=== PATIENT | male | born 1970 | race Caucasian/White ===

== ENCOUNTER → 2017-03-01 | Outpatient (CLI) | payer MEDICARE, MEDICAID ==
[~2017-03-01] MED LIST: BIMA2.5D5 OP; CALC625T57 PO; CALC625T64 PO; CHLO1LIQ2 PO; CLOT15CR66 TP; DIVA250T83 PO; DIVA500T97 PO; DIVA500T98 PO; DOCU-299 PO; LACO200T2 PO; LORA-629 PO; LORA-941 PO; LORA10CA3 PO; MAGN-40 PO; MULT-1335 PO; OXYGEN INH; PERA10TA; PERA2TAB PO; POLY1DRO10 OP; PRE20 PO; SODCTAB PO; SODI104S3; SYSTANEPT OP; TRIA15CR40; VITAMIN; [UNRECOGNIZED DRUG - CODE] PO; [UNRECOGNIZED DRUG - CODE] TP
== END ==
LOC: LAB 16:51
PROVIDERS: ATTEND Psychiatry & Neurology Neurology
DX: R62.50 Unspecified lack of expected normal physiological development in childhood (principal); F69 Unspecified disorder of adult personality and behavior; G40.109 Localization-related (focal) (partial) symptomatic epilepsy and epileptic syndromes with simple partial seizures, not intractable, without status epilepticus; Z92.89 Personal history of other medical treatment; E03.9 Hypothyroidism, unspecified
CPT/HCPCS: 36415; 80339; 82390; 82525; 82607; 84207; 84439; 84443; 84446; 84481

== ENCOUNTER → 2017-07-16 | Outpatient (CLI) | payer MEDICARE, MEDICAID | LOC: RESP 19:59 | PROVIDERS: ATTEND Psychiatry & Neurology Neurology | DX: G47.33 Obstructive sleep apnea (adult) (pediatric) (principal); G47.36 Sleep related hypoventilation in conditions classified elsewhere; E66.3 Overweight ==

== ENCOUNTER 2017-10-15 10:47 | Emergency (ER) | payer MEDICARE, MEDICAID ==
--- NOTE | 2017-10-15 11:11 | ER Report ---
History and Physical Time Seen By MD: 11:11 Hx. of Stated Complaint: ACCORDING TO CARE PROVIDER, PT HAS NOT HAD A BM SINCE 09/27. PT DOES NOT APPEAR IN ANY DISTRESS, HAS BEEN EATING HPI/ROS CHIEF COMPLAINT: Constipation HISTORY OF PRESENT ILLNESS: 39-year-old male patient presents to emergency room with complaint of constipation. Patient is a patient of the [facility]. They state they have not noted that he has had a bowel movement in 17 days. They did bring him in for evaluation. They state that he spent eating okay, he has not had any nausea, vomiting or diarrhea. They state that they did give him a milk of mag with no improvement. Patient has not had any fevers or chills. They state that he has not seemed more irritable or in obvious discomfort. REVIEW OF SYSTEMS: Respiratory: No cough, no dyspnea. Cardiovascular: No chest pain, no palpitations. Gastrointestinal: As noted above Musculoskeletal: No back pain. Allergies: Coded Allergies: adhesive (Verified Allergy, Mild, rash, 07/20/16) lamotrigine (Verified Allergy, Mild, 07/20/16) Sulfa (Sulfonamide Antibiotics) (Verified Allergy, Unknown, 12/31/16) Uncoded Allergies: ASPRIN (Allergy, Mild, 01/13/07) SEIZURE MED (Allergy, Mild, UNKNOWN REACTION TO MOST SEIZURE MEDS., ) Home Meds Active Scripts Loratadine (LORATADINE) 10 Mg Tablet, 1 TAB PO DAILY, #90 TAB Prov:FERNY SEQUEIRA MD 12/03/16 Reported Medications Sertraline Hcl (SERTRALINE HCL) 50 Mg Tablet, 1 TAB PO QDAY, TAB 10/15/17 Levothyroxine Sodium (LEVOTHYROXINE SODIUM) 50 Mcg Tablet, 50 MCG PO QDAY, TAB 10/15/17 Bimatoprost (LUMIGAN) 2.5 Ml Drops, 2.5 ML OP DAILY 07/20/16 Chlorhexidine (CHLORHEXIDINE FLAVOR) 1 Ml Liquid, 1 ML PO HS 07/20/16 Calcium Polycarbophil (FIBER LAX) 625 Mg Tablet, 625 MG PO DAILY 07/20/16 Perampanel (Fycompa) 2 Mg Tablet, 2 MG PO DAILY 07/20/16 Sodium Chloride (SODIUM CHLORIDE) 1 Gm Tab, 1 GM PO DAILY, TAB 07/20/16 Divalproex Sodium (DEPAKOTE) 500 Mg Tablet.dr, 1000 MG PO NOON, TAB 07/20/16 Polyvinyl Alcohol/Povidone/Pf (REFRESH CLASSIC EYE DROPS) 1 Each Droperette, 1 EACH OP BID 07/20/16 Sodium Chloride ([place]) 0.65 % [place], 2 SPRAYS NA DAILY 07/20/16 Lacosamide (Vimpat) 200 Mg Tablet, 200 MG PO BID 05/29/11 Multivitamins W-Minerals (Multiple Vitamin) 1 Tab Tablet, 1 TAB PO DAILY 05/29/11 Divalproex Sodium (Depakote) 500 Mg Tablet.dr, 500 MG PO BID, 0 Refills 02/14/10 Discontinued Reported Medications Lacosamide (VIMPAT) 200 Mg Tablet, 200 MG JT BID 10/15/17 Past Medical/Surgical History Patient has a past medical history of seizures. 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 Reviewed Nurses Notes: Yes Hx Smoking: No Smoking Status: Never Smoker Hx Substance Use Disorder: No Hx Alcohol Use: No Constitutional Vital Sign - Last 24 Hours 10/15/17 10/15/17 10:52 12:40 Temp 98.6 Pulse 78 70 Resp 20 14 B/P (MAP) 110/77 98/73 (81) Pulse Ox 95 95 O2 Delivery Room Air Room Air Physical Exam General Appearance: The patient is alert, has no immediate need for airway protection and no current signs of toxicity. Respiratory: Chest is non tender, lungs are clear to auscultation. Cardiac: regular rate and rhythm Gastrointestinal: Abdomen is soft and non tender, no masses, bowel sounds are hypoactive in the left lower quadrant. Musculoskeletal: Neck: Neck is supple and non tender. Extremities have full range of motion and are non tender. Skin: No rashes or lesions. DIFFERENTIAL DIAGNOSIS: After history and physical exam differential diagnosis was considered for constipation, gas, gastroenteritis. Medical Decision Making EKG/Imaging Imaging Exam type: KUB SINGLE VIEW ABDOMEN History: no bowel movement for 2+ weeks Comparison: None. Findings: Moderate amount fecal material seen throughout the colon. Remainder the bowel gas pattern is nonspecific. There is no gross evidence organomegaly. Several tiny punctate metallic densities project over the right upper quadrant abdomen and some over the mid pelvis and left abdomen. This could represent bowel contents. A thin metallic wire projects over the left mid abdomen and in the left paraspinal region. IMPRESSION: 1. Moderate amount of fecal material seen throughout colon consistent with clinical history of constipation Report Dictated By: Rosette Burgos MD at 10/15/2017 11:56 AM Report E-Signed By: Rosette Burgos MD at 10/15/2017 11:58 AM ED Course/Re-evaluation ED Course Patient was admitted to an exam room, history and physical were obtained. Differential diagnoses were considered. Examination the abdomen is soft and nontender, patient did have decreased bowel sounds in the left lower quadrant. A KUB exam was done. It did show moderate stool throughout the colon. I discussed the findings with the patient and his caregiver. I believe the patient will need to have an enema and see if he gets his bowels moving. We did give him 300 mg of mag citrate as well as an enema. Patient is able have a good size bowel movement here in the emergency room. We will go ahead and discharge patient home at this time. They're given additional bottle of mag citrate to use tomorrow to see if indicated the stool to continue move. Caregiver verbalized understanding and agreement plan. They're to follow-up with his primary care provider in the next week. Decision to Disposition Date: Oct 15, 2017 Decision to Disposition Time: 12:35 Depart Departure Latest Vital Signs Vital Signs Date Time Temp Pulse Resp B/P (MAP) Pulse Ox O2 Delivery O2 Flow Rate FiO2 10/15/17 12:40 70 14 98/73 (81) 95 Room Air 10/15/17 10:52 98.6 Impression: Primary Impression: Constipation Condition: Improved Disposition: HOME OR SELF-CARE Patient Instructions: Constipation (ED) Additional Instructions: Increase fluid intake. Get plenty of rest. Increase exercise. Follow up with your primary care provider. Return to the ER if condition worsens. Take the Magnesium Citrate tomorrow to see if we can't continue to have another large bowel movement. Problem Qualifiers Primary Impression: Constipation Constipation type: unspecified constipation type Qualified Codes: K59.00 - Constipation, unspecified ANA LILIA ALVARADO CONSTRUCTION RIGGER Oct 15, 2017 11:11
[2017-10-15] MEDS ORDERED: MAGNESIUM CITRATE 300 ML BTL PO ONE ×2 (11:35→12:35)
[2017-10-15] MEDS ORDERED: LAC200PT JT (11:37)
[2017-10-15] MEDS ORDERED: LEVO50TA86 PO (11:37)
[2017-10-15] MEDS ORDERED: SERT-184 PO (11:37)
--- NOTE | 2017-10-15 12:03 | RADIOLOGY IMAGING REPORT ---
FACILITY: [facility] [place] PATIENT NAME: Evan Gonzáles : 1970 MR: [id number] V: [id number] EXAM DATE: ORDERING PHYSICIAN: ANA LILIA ALVARADO TECHNOLOGIST: Location: [facility] Patient: Evan Gonzáles : 1970 Visit/Account:[id number] Date of Sevice: 10/15/2017 Exam type: KUB SINGLE VIEW ABDOMEN History: no bowel movement for 2+ weeks Comparison: None. Findings: Moderate amount fecal material seen throughout the colon. Remainder the bowel gas pattern is nonspec ific. There is no gross evidence organomegaly. Several tiny punctate metallic densities project ove r the right upper quadrant abdomen and some over the mid pelvis and left abdomen. This could represe nt bowel contents. A thin metallic wire projects over the left mid abdomen and in the left paraspina l region. IMPRESSION: 1. Moderate amount of fecal material seen throughout colon consistent with clinical history of const ipation Report Dictated By: Rosette Burgos MD at 10/15/2017 11:56 AM Report E-Signed By: Rosette Burgos MD at 10/15/2017 11:58 AM WSN:[email or web address]
[2017-10-15 12:40] VITALS: BP 98/73
== END 2017-10-15 12:44 | disposition home or self-care (01) ==
LOC: ER 11:09
DX: K59.00 Constipation, unspecified (principal)
CPT/HCPCS: 74018; 99283; A9270

== ENCOUNTER → 2017-11-20 | Outpatient (CLI) | payer MEDICARE, MEDICAID ==
[~2017-11-20] MED LIST changes: +LAC200PT JT; +LEVO50TA86 PO; +SERT-184 PO
--- NOTE | 2017-11-20 16:43 | RADIOLOGY IMAGING REPORT ---
FACILITY: [facility] PATIENT NAME: Evan Gonzáles : 1970 MR: [id number] V: [id number] EXAM DATE: ORDERING PHYSICIAN: SARATH RODRIGUEZ TECHNOLOGIST: Location: [facility] [place] Patient: Evan Gonzáles : 1970 Visit/Account:[id number] Date of Sevice: 11/20/2017 Exam type: CHEST PA AND LAT History: Hypoxemia Comparison: October 21, 2006. Findings: The lungs are free of acute effusions, infiltrates or edema. There is no evidence of a pneumothorax or pneumomediastinum. The cardiac silhouette is normal in size. There is a battery pack projecting over the left mid thorax with leads extending over the right and left sides of the upper thorax and n hill. There is a segment of catheter material projecting over the right anterior chest wall. This wa s present on the prior study there is no left-sided rib fracture IMPRESSION: 1. No evidence of acute pulmonary consolidation Report Dictated By: Rosette Burgos MD at 11/20/2017 4:36 PM Report E-Signed By: Rosette Burgos MD at 11/20/2017 4:39 PM WSN:[email or web address]
== END ==
LOC: RAD 15:39
PROVIDERS: ATTEND Family Medicine
DX: R09.02 Hypoxemia (principal)
CPT/HCPCS: 71046

== ENCOUNTER 2018-01-13 11:13 | Emergency (ER) | payer MEDICARE, MEDICAID ==
--- NOTE | 2018-01-13 11:38 | ER Report ---
History and Physical Time Seen By MD: 11:38 Allergies: Coded Allergies: adhesive (Verified Allergy, Mild, rash, 07/20/16) lamotrigine (Verified Allergy, Mild, 07/20/16) Sulfa (Sulfonamide Antibiotics) (Verified Allergy, Unknown, 12/31/16) Uncoded Allergies: ASPRIN (Allergy, Mild, 01/13/07) SEIZURE MED (Allergy, Mild, UNKNOWN REACTION TO MOST SEIZURE MEDS., 01/13/07) Home Meds Active Scripts Loratadine (LORATADINE) 10 Mg Tablet, 1 TAB PO DAILY, #90 TAB Prov:FERNY SEQUEIRA MD 12/03/16 Reported Medications Sertraline Hcl (SERTRALINE HCL) 50 Mg Tablet, 1 TAB PO QDAY, TAB 10/15/17 Levothyroxine Sodium (LEVOTHYROXINE SODIUM) 50 Mcg Tablet, 50 MCG PO QDAY, TAB 10/15/17 Bimatoprost (LUMIGAN) 2.5 Ml Drops, 2.5 ML OP DAILY 07/20/16 Chlorhexidine (CHLORHEXIDINE FLAVOR) 1 Ml Liquid, 1 ML PO HS 07/20/16 Calcium Polycarbophil (FIBER LAX) 625 Mg Tablet, 625 MG PO DAILY 07/20/16 Perampanel (Fycompa) 2 Mg Tablet, 2 MG PO DAILY 07/20/16 Sodium Chloride (SODIUM CHLORIDE) 1 Gm Tab, 1 GM PO DAILY, TAB 07/20/16 Divalproex Sodium (DEPAKOTE) 500 Mg Tablet.dr, 1000 MG PO NOON, TAB 07/20/16 Polyvinyl Alcohol/Povidone/Pf (REFRESH CLASSIC EYE DROPS) 1 Each Droperette, 1 EACH OP BID 07/20/16 Sodium Chloride ([place]) 0.65 % [place], 2 SPRAYS NA DAILY 07/20/16 Lacosamide (Vimpat) 200 Mg Tablet, 200 MG PO BID 05/29/11 Multivitamins W-Minerals (Multiple Vitamin) 1 Tab Tablet, 1 TAB PO DAILY 05/29/11 Divalproex Sodium (Depakote) 500 Mg Tablet.dr, 500 MG PO BID, 0 Refills 02/14/10 Hx Smoking: No Smoking Status: Never Smoker Hx Substance Use Disorder: No Hx Alcohol Use: No Depart Departure Condition: Stable Disposition: HOME OR SELF-CARE SHENG TRAVIS POOL INSTALLER-BC Jan 13, 2018 11:38
[2018-01-13] MEDS ORDERED: SERT25TA90 PO (12:17)
[2018-01-13] MEDS ORDERED: CALC625T9 PO (12:17)
[2018-01-13] MEDS ORDERED: CHOL10005 PO (12:17)
--- NOTE | 2018-01-13 13:05 | RADIOLOGY IMAGING REPORT ---
FACILITY: [facility] PATIENT NAME: Evan Gonzáles : 1970 MR: [id number] V: [id number] EXAM DATE: ORDERING PHYSICIAN: SHAKA COLEY TECHNOLOGIST: Location: [facility] [place] Patient: Evan Gonzáles : 1970 Visit/Account:[id number] Date of Sevice: 01/13/2018 EXAMINATION: Chest radiograph HISTORY: Hypoxia COMPARISON: November 20, 2017 FINDINGS: Implanted device along the left chest with leads extending into the left neck as before. The cardiac silhouette is normal in size. 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 No pneumothorax. Clear lungs. A few unchanged chronic left rib fracture deformities. IMPRESSION: 1. No acute finding. 2. Unchanged chronic left rib fracture deformities. Report Dictated By: Alexy Jaramillo MD at 01/13/2018 12:59 PM Report E-Signed By: Alexy Jaramillo MD at 01/13/2018 1:01 PM AMADAN:RADHA
[2018-01-13 13:30] VITALS: BP 108/76
--- NOTE | 2018-01-13 13:43 | ER Report ---
History and Physical Time Seen By MD: 13:36 Hx. of Stated Complaint: low o2 levels HPI/ROS 47-year-old male with a baseline developmental delay, was sent to the ED from Urgent care for b/l bluish colored hands and "low oxygen." The caregiver 1st noticed that the patient's right thumb was discolored. Shortly after his thumb. Discolored all of his fingers on both hands appeared discolored. When I spoke with the providers from urgent care, the patient still had bilateral pulses. Is not complaining of pain. He was sent to the emergency department for further w orkup. The patient denies chest pain or shortness of breath. He does have a history of aspiration. No history of atrial fibrillation. Remainder of the 14 system rev: Yes Allergies: Coded Allergies: adhesive (Verified Allergy, Mild, rash, 07/20/16) lamotrigine (Verified Allergy, Mild, 07/20/16) Sulfa (Sulfonamide Antibiotics) (Verified Allergy, Unknown, 12/31/16) Home Meds Active Scripts Loratadine (LORATADINE) 10 Mg Tablet, 1 TAB PO DAILY, #90 TAB Prov:FERNY SEQUEIRA MD 12/03/16 Reported Medications Calcium Polycarbophil (Calcium Polycarbophil) 625 Mg Tablet, 1000 MG PO QDAY 01/13/18 Sertraline Hcl (SERTRALINE HCL) 25 Mg Tablet, 3 TAB PO QDAY, TAB 01/13/18 Cholecalciferol (Vitamin D3) (VITAMIN D3) 1,000 Unit Tablet, 1000 UNIT PO QDAY, TAB 01/13/18 Levothyroxine Sodium (LEVOTHYROXINE SODIUM) 50 Mcg Tablet, 50 MCG PO QDAY, TAB 10/15/17 Bimatoprost (LUMIGAN) 2.5 Ml Drops, 2.5 ML OP DAILY 07/20/16 Chlorhexidine (CHLORHEXIDINE FLAVOR) 1 Ml Liquid, 1 ML PO HS 07/20/16 Perampanel (Fycompa) 2 Mg Tablet, 2 MG PO DAILY 07/20/16 Sodium Chloride (SODIUM CHLORIDE) 1 Gm Tab, 1 GM PO DAILY, TAB 07/20/16 Divalproex Sodium (DEPAKOTE) 500 Mg Tablet.dr, 1000 MG PO NOON, TAB 07/20/16 Polyvinyl Alcohol/Povidone/Pf (REFRESH CLASSIC EYE DROPS) 1 Each Droperette, 1 EACH OP BID 07/20/16 Sodium Chloride ([place]) 0.65 % [place], 2 SPRAYS NA DAILY 07/20/16 Lacosamide (Vimpat) 200 Mg Tablet, 200 MG PO BID 05/29/11 Multivitamins W-Minerals (Multiple Vitamin) 1 Tab Tablet, 1 TAB PO DAILY 05/29/11 Divalproex Sodium (Depakote) 500 Mg Tablet.dr, 500 MG PO BID, 0 Refills 02/14/10 Discontinued Reported Medications Sertraline Hcl (SERTRALINE HCL) 50 Mg Tablet, 1 TAB PO QDAY, TAB 10/15/17 Calcium Polycarbophil (FIBER LAX) 625 Mg Tablet, 625 MG PO DAILY 07/20/16 Reviewed Nurses Notes: Yes Old Medical Records Reviewed: Yes Hx Smoking: No Smoking Status: Never Smoker Hx Substance Use Disorder: No Hx Alcohol Use: No Constitutional Vital Sign - Last 24 Hours 01/13/18 01/13/18 01/13/18 01/13/18 11:32 11:40 11:43 12:00 Temp 96.6 Pulse 65 65 Resp 15 14 B/P (MAP) 108/83 (91) 108/83 111/73 (86) Pulse Ox 87 88 O2 Delivery Room Air 01/13/18 12:13 Pulse 61 Resp 12 Pulse Ox 88 Physical Exam General Appearance: The patient is alert, has no immediate need for airway protection and no current signs of toxicity. Eyes: Pupils equal and round no injection. Respiratory: Chest is non tender, lungs are clear to auscultation. Cardiac: regular rate and rhythm, capillary refill is brisk Gastrointestinal: Abdomen is soft and non tender, no masses, bowel sounds normal. Neck: Neck is supple and non tender. Extremities have full range of motion and are non tender. Skin: No rashes or lesions. DIFFERENTIAL DIAGNOSIS: After history and physical exam differential diagnosis was considered for thrombus, emboli, vascular emergency, raynaud's, medication reaction, hypothyroid, aspiration, PE, pneumonia Medical Decision Making EKG/Imaging Imaging X-ray: CXR was obtained. I viewed the images myself on the PACS system. My interpretation of the images is: normal. The radiologist interpretation had no clinically significant variation from this interpretation. ED Course/Re-evaluation ED Course Very pleasant 47-year-old male with a baseline developmental delay. Presents to the emergency department from urgent care with by lateral bluish colored fingers and "hypoxia.". The patient's hands were warmed by nursing staff, and a pulse ox was obtained by using the earlobe. Pulse ox has been consistently in the low 90s while in the emergency department. The patient has no wheezing, rales, or rhonchi. No chest pain or any other symptoms to suggest hypoxia from a PE. Normal chest x-ray. Afebrile. He is laughing and having find with his caregivers in the emergency department. He has no complaints. Not worrisome for vascular occlusion. I think he likely has raynaud's phenomena. It is unclear as to why this happened today. The patient becomes very combative with blood work, so I did not think it an emergency to draw blood at this time. The patient's hands were warmed without incident, and normal cap refill in coloration was noted. I counseled the caregivers that a Lamictal level and TSH should be taken by his primary physician. Was amenable with the plan. Decision to Disposition Date: Jan 13, 2018 Decision to Disposition Time: 13:37 Depart Departure Latest Vital Signs Vital Signs Date Time Temp Pulse Resp B/P (MAP) Pulse Ox O2 Delivery O2 Flow Rate FiO2 01/13/18 12:13 61 12 88 01/13/18 12:00 111/73 (86) 01/13/18 11:40 96.6 Room Air Impression: Primary Impression: Raynauds phenomenon Condition: Improved Disposition: HOME OR SELF-CARE Patient Instructions: Raynaud Disease (ED) Problem Qualifiers Primary Impression: Raynauds phenomenon Raynaud?s-associated gangrene presence: without gangrene Qualified Codes: I73.00 - Raynaud's syndrome without gangrene SHAKA COLEY MD Jan 13, 2018 13:43
== END 2018-01-13 13:53 | disposition home or self-care (01) ==
LOC: ER 11:42
DX: I73.00 Raynaud's syndrome without gangrene (principal)
CPT/HCPCS: 71045; 99283

== ENCOUNTER 2018-02-18 21:24 | Inpatient (IN) | payer MEDICARE, MEDICAID ==
--- NOTE | 2018-02-18 21:18 | ER Report ---
History and Physical Time Seen By MD: 21:18 HPI/ROS CHIEF COMPLAINT: seizure, unresponsive HISTORY OF PRESENT ILLNESS: This is a 47 year old male. He is a resident of the [facility]. He has a history of seizure disorder, baseline developmental delay, and is on Vimpat and Depakote for seizures. He has a history of Vagal Nerve Stimulator, which is inactive and not used. Has been seen recently for Raynauds and constipation. He had signs of having a seizure, so caregivers got him into bed. EMS responded and found the patient unresponsive, but no seizure activity. No reported fevers or chills today. No signs of illness other than report of s eizures during the day today. No report of cough. On arrival, the patient is unresponsive to tactile or verbal stimuli. REVIEW OF SYSTEMS: Unable to obtain Allergies: Coded Allergies: adhesive (Verified Allergy, Mild, rash, 07/20/16) lamotrigine (Verified Allergy, Mild, 07/20/16) Sulfa (Sulfonamide Antibiotics) (Verified Allergy, Unknown, 12/31/16) Home Meds Active Scripts Loratadine (LORATADINE) 10 Mg Tablet, 1 TAB PO DAILY, #90 TAB Prov:FERNY SEQUEIRA MD 12/03/16 Reported Medications Calcium Polycarbophil (Calcium Polycarbophil) 625 Mg Tablet, 1000 MG PO QDAY 01/13/18 Sertraline Hcl (SERTRALINE HCL) 25 Mg Tablet, 3 TAB PO QDAY, TAB 01/13/18 Cholecalciferol (Vitamin D3) (VITAMIN D3) 1,000 Unit Tablet, 1000 UNIT PO QDAY, TAB 01/13/18 Levothyroxine Sodium (LEVOTHYROXINE SODIUM) 50 Mcg Tablet, 50 MCG PO QDAY, TAB 10/15/17 Bimatoprost (LUMIGAN) 2.5 Ml Drops, 2.5 ML OP DAILY 07/20/16 Chlorhexidine (CHLORHEXIDINE FLAVOR) 1 Ml Liquid, 1 ML PO HS 07/20/16 Perampanel (Fycompa) 2 Mg Tablet, 2 MG PO DAILY 07/20/16 Sodium Chloride (SODIUM CHLORIDE) 1 Gm Tab, 1 GM PO DAILY, TAB 07/20/16 Divalproex Sodium (DEPAKOTE) 500 Mg Tablet.dr, 1000 MG PO NOON, TAB 07/20/16 Polyvinyl Alcohol/Povidone/Pf (REFRESH CLASSIC EYE DROPS) 1 Each [place]pe[place], 1 EACH OP BID 07/20/16 Sodium Chloride ([place]) 0.65 % [place], 2 SPRAYS NA DAILY 07/20/16 Lacosamide (Vimpat) 200 Mg Tablet, 200 MG PO BID 05/29/11 Multivitamins W-Minerals (Multiple Vitamin) 1 Tab Tablet, 1 TAB PO DAILY 05/29/11 Divalproex Sodium (Depakote) 500 Mg Tablet.dr, 500 MG PO BID, 0 Refills 02/14/10 Reviewed Nurses Notes: Yes Hx Smoking: No Smoking Status: Never Smoker Hx Substance Use Disorder: No Hx Alcohol Use: No Constitutional Vital Sign - Last 24 Hours 02/18/18 02/18/18 02/18/18 02/18/18 21:24 21:28 21:28 21:29 Temp 95.4 Pulse 85 Resp 22 12 18 B/P (MAP) 185/89 O2 Delivery Non-Rebreather O2 Flow Rate 15.0 02/18/18 02/18/18 02/18/18 02/18/18 21:34 21:39 21:44 21:49 Pulse 88 85 81 86 Resp 10 10 8 8 02/18/18 02/18/18 02/18/18 02/18/18 21:54 21:59 22:00 22:04 Pulse 45 Resp 0 65 0 B/P (MAP) 120/89 (99) Pulse Ox 87 84 02/18/18 02/18/18 02/18/18 02/18/18 22:09 22:13 22:14 22:15 Pulse 126 Resp 55 122 B/P (MAP) 195/177 (183) +++/234 (-26) Pulse Ox 62 66 02/18/18 02/18/18 02/18/18 02/18/18 22:16 22:19 22:21 22:22 Resp 28 B/P (MAP) 141/118 (126) 101/45 (63) 67/47 (54) 87/54 (65) 02/18/18 02/18/18 02/18/18 02/18/18 22:24 22:25 22:27 22:29 Pulse 121 Resp 20 20 B/P (MAP) 59/37 (44) 67/34 (45) 60/27 (38) 71/41 (51) 1818 18/18 18/18 18 22:31 22:32 22:34 22:35 Resp 23 B/P (MAP) 62/47 (52) 85/67 (73) 85/63 (70) 69/54 (59) 1818 18/18 1818 02/18/18 22:36 22:36 22:36 22:37 Pulse 100 Resp 18 B/P (MAP) 56/23 (34) O2 Delivery Mechanical Ventilator FiO2 100.0 100.0 1818 1818 18 02/18/18 22:39 22:40 22:42 22:47 Pulse 95 94 Resp 18 16 B/P (MAP) 58/27 (37) 95/61 (72) 94/57 (69) 18 1818 18 02/18/18 22:48 22:49 22:50 22:51 Pulse ??? 96 ??? 96 Resp 18 17 18 16 B/P (MAP) 94/45 (61) 101/22 (48) 107/48 (67) 02/18/18 18 02/18/18 18 22:52 22:53 22:54 22:55 Pulse 98 96 97 98 Resp 38 17 17 18 B/P (MAP) 86/38 (54) 102/46 (64) 118/43 (68) Pulse Ox 100 18 18 18 02/18/18 22:56 22:57 22:58 22:59 Pulse 99 98 99 100 Resp 18 17 21 18 B/P (MAP) 116/59 (78) 119/78 (92) 122/63 (82) Pulse Ox 100 100 100 100 18/18 18 18 18 23:00 23:01 23:06 23:08 Pulse 101 104 Resp 17 22 20 B/P (MAP) 125/55 (78) 113/67 (82) Pulse Ox 100 100 87 18/18 18 18 02/18/18 23:09 23:10 23:11 23:12 Pulse 102 Resp 19 B/P (MAP) 121/65 (83) 100/48 (65) 115/90 (98) Pulse Ox 100 18 18 02/18/18 02/18/18 23:13 23:16 23:17 23:18 B/P (MAP) 123/63 (83) 123/71 (88) 130/67 (88) 129/70 (89) 02/18/18 02/18/18 02/18/18 02/18/18 23:20 23:21 23:23 23:24 Resp 20 B/P (MAP) 134/71 (92) 131/62 (85) 129/70 (89) 127/74 (91) Pulse Ox 100 02/18/18 02/18/18 02/18/18 02/18/18 23:25 23:26 23:27 23:28 Pulse 101 Resp 19 B/P (MAP) 128/66 (86) 122/67 (85) 124/60 (81) Pulse Ox 100 02/18/18 02/18/18 02/18/18 02/18/18 23:29 23:31 23:32 23:33 Pulse 102 Resp 27 B/P (MAP) 127/58 (81) 120/87 (98) 122/69 (86) 119/74 (89) Pulse Ox 98 02/18/18 02/18/18 02/18/18 02/18/18 23:35 23:36 23:38 23:39 Resp 26 B/P (MAP) 131/65 (87) 123/63 (83) 125/50 (75) 125/55 (78) Pulse Ox 100 02/18/18 02/18/18 02/18/18 02/18/18 23:41 23:42 23:43 23:45 Pulse 102 Resp 26 B/P (MAP) 120/62 (81) 117/79 (92) 123/80 (94) 123/70 (87) Pulse Ox 100 02/18/18 02/18/18 02/18/18 02/18/18 23:46 23:47 23:48 23:51 Resp 30 21 B/P (MAP) 112/82 (92) 121/49 (73) 118/67 (84) Pulse Ox 100 02/18/18 02/18/18 02/19/1818 23:55 23:56 00:00 00:05 Pulse 99 Resp 24 B/P (MAP) 112/78 (89) 115/60 (78) 118/77 (91) 02/19/18 02/19/18 02/19/18 02/19/18 00:10 00:11 00:15 00:16 Pulse 98 Resp 21 21 B/P (MAP) 108/81 (90) 103/71 (82) 02/19/18 02/19/18 02/19/18 02/19/18 00:20 00:21 00:25 00:26 Pulse 98 98 Resp 30 20 B/P (MAP) 114/70 (85) 100/71 (81) 02/19/18 02/19/18 02/19/18 02/19/18 00:29 00:31 00:32 00:34 Pulse 96 Resp 22 B/P (MAP) 52/44 (47) 82/72 (75) 90/65 (73) 02/19/18 02/19/18 02/19/18 02/19/18 00:36 00:38 00:41 00:42 Resp 22 25 B/P (MAP) 103/58 (73) 103/77 (86) 114/54 (74) 105/63 (77) 02/19/18 02/19/18 02/19/18 02/19/18 00:44 00:46 00:48 00:50 Resp 21 B/P (MAP) 109/37 (61) 106/58 (74) 109/50 (69) 106/56 (73) 02/19/18 02/19/18 02/19/18 02/19/18 00:51 00:52 00:54 00:56 Pulse 96 94 Resp 20 21 B/P (MAP) 107/53 (71) 113/54 (73) 114/52 (72) Pulse Ox 100 100 02/19/18 02/19/18 02/19/18 02/19/18 00:58 01:00 01:02 01:04 B/P (MAP) 113/51 (71) 112/59 (76) 114/59 (77) 111/58 (75) 02/19/18 02/19/18 02/19/18 02/19/18 01:05 01:06 01:08 01:10 Pulse 94 94 Resp 20 B/P (MAP) 112/52 (72) 113/63 (80) 113/59 (77) Pulse Ox 100 19/18 /19/18 /19/18 18 01:12 01:14 01:15 01:16 Pulse 97 Resp 17 B/P (MAP) 116/52 (73) 107/62 (77) 103/53 (70) Pulse Ox 100 19/18 19/18 19/18 18 01:18 01:20 01:22 01:24 Pulse 98 Resp 19 B/P (MAP) 102/81 (88) 104/58 (73) 106/62 (77) 102/51 (68) Pulse Ox 99 02/19/18 02/19/18 02/19/18 02/19/18 01:25 01:26 01:28 01:30 Pulse 95 94 Resp 23 16 B/P (MAP) 92/45 (61) 100/51 (67) 99/50 (66) Pulse Ox 94 87 19/18 02/19/18 02/19/18 02/19/18 01:32 01:34 01:35 01:36 Resp 24 B/P (MAP) 91/57 (68) 86/61 (69) 95/61 (72) Pulse Ox 87 02/19/18 02/19/18 02/19/18 02/19/18 01:38 01:40 01:42 01:44 Resp 19 B/P (MAP) 97/61 (73) 90/59 (69) 76/50 (59) 82/35 (51) Pulse Ox 95 19/18 02/19/18 02/19/18 18 01:46 01:50 01:52 01:54 Resp 18 B/P (MAP) 52/38 (43) 93/66 (75) 102/70 (81) 102/53 (69) 02/19/18 02/19/18 02/19/18 18 01:56 01:58 02:00 02:02 Pulse 92 Resp 17 B/P (MAP) 99/60 (73) 91/63 (72) 88/70 (76) 74/59 (64) Pulse Ox 85 02/19/18 02/19/18 02/19/18 02/19/18 02:04 02:05 02:10 02:13 Temp 92.4 Pulse 99 101 101 Resp 19 22 B/P (MAP) 96/49 (65) 80/67 (71) Pulse Ox 85 92 O2 Delivery Mechanical Ventilator FiO2 40.0 02/19/18 02:15 FiO2 40.0 Intake and Output 02/18/18 02/18/18 02/19/18 15:00 23:00 07:00 Output Total 0 ml Balance 0 ml Physical Exam General Appearance: The patient is obtunded, not responsive to verbal or tactile stimulation. He is pale appearing. No rigidity. Eyes: Pupils are equal, round. Minimally reactive to light. No pallor, injection or icterus. His eyes are dry, and saline drops applied by nursing with some movement of the eyes and eyelids with this. ENT: Mucous membranes are dry. Otherwise normal oral mucosa. Posterior oropharynx is normal. Normal tympanic membranes and canals. Neck: No lymphadenopathy. Trachea is midline. Respiratory: Breathing spontaneously and unlabored, but shallow. Lungs are clear to auscultation. Cardiovascular: Initially with tachycardia and regular, then decreased to a regular rate and rhythm. No murmurs, gallops or rubs. Normal capillary refill. No edema. Gastrointestinal: Abdomen is soft. Nondistended. Normal active bowel sounds. Genitourinary: Incontinent of urine. Neurological: No sign of seizure at this time. Appears that he could be post- ictal at this time, not responding as noted. No spontaneous movements of extremi ties and no withdrawal to tactile stimuli. Skin: Warm and dry. Pallor. No rashes or lesions noted. Musculoskeletal: No deformities noted. DIFFERENTIAL DIAGNOSIS: After history and physical exam, differential diagnosis was considered for a patient with reported seizure, likely post-ictal at this time, no sign of current seizure activity and no sign of status. Will get further vital signs and start IV with labs, CT scan of head, and chest x-ray. Medical Decision Making Data Points Result Diagram: 02/18/181 02/19/18 0309 Laboratory Hematology Test 02/18/18 22:21 02/18/18 23:30 02/19/18 00:00 Red Blood Count 3.43 M/uL (4.00-5.60) Mean Corpuscular Volume 114.9 fL (80.0-96.0) Mean Corpuscular Hemoglobin 33.7 pg (26.0-33.0) Mean Corpuscular Hemoglobin Concent 29.3 g/dL (32.0-36.0) Red Cell Distribution Width 16.4 % (11.5-14.5) Mean Platelet Volume 8.7 fL (7.2-11.1) Neutrophils (%) (Auto) % (39.4-72.5) Lymphocytes (%) (Auto) % (17.6-49.6) Monocytes (%) (Auto) % (4.1-12.4) Eosinophils (%) (Auto) % (0.4-6.7) Basophils (%) (Auto) % (0.3-1.4) Nucleated RBC Relative Count (auto) /100WBC Neutrophils # (Auto) K/uL (2.0-7.4) Lymphocytes # (Auto) K/uL (1.3-3.6) Monocytes # (Auto) K/uL (0.3-1.0) Eosinophils # (Auto) K/uL (0.0-0.5) Basophils # (Auto) K/uL (0.0-0.1) Nucleated RBC Absolute Count (auto) K/uL Neutrophils % (Manual) 34 % (39.4-72.5) Band Neutrophils % 13 % Lymphocytes % (Manual) 34 % (17.6-49.6) Monocytes % (Manual) 13 % (4.1-12.4) Eosinophils % (Manual) 0 % (0.4-6.7) Basophils % (Manual) 0 % (0.3-1.4) Metamyelocytes % 5 % Myelocytes % 1 % Nucleated Red Blood Cells 2 Macrocytosis 3+ Prothrombin Time 28.0 seconds (12.0-14.4) Prothromb Time International Ratio 2.57 Activated Partial Thromboplast Time 98 seconds (23-35) D-Dimer Quantitative (PE/DVT) > 20.00 ug/ml (0-0.50) Total Bilirubin 0.4 mg/dl (0.2-1.3) Aspartate Amino Transf (AST/SGOT) 136 U/L (0-35) Alanine Aminotransferase (ALT/SGPT) 83 U/L (0-56) Alkaline Phosphatase 37 U/L (0-126) Troponin I 0.159 ng/ml Total Protein 2.9 g/dl (6.3-8.2) Albumin 1.5 g/dl (3.5-5.0) Blood Gas Puncture Site Left radial Blood Gas Patient Temperature 94.4 DEGREES Arterial Blood pH 6.62 (7.35-7.45) Arterial Blood Partial Pressure CO2 85 mmHg (32-37) Arterial Blood Partial Pressure O2 87 mmHg (60-80) Arterial Blood HCO3 9 mmol/L (20-26) Arterial Blood Oxygen Saturation 79 % (92-100) Arterial Blood Base Excess -29.0 mmol/L Bhaskar Test Acceptable Oxygen Liters/Minute 100 Urine Color Yellow Urine Clarity Cloudy Urine pH 7.0 pH (4.8-9.5) Urine Specific [place] 1.009 Urine Protein 100 mg/dL (NEGATIVE) Urine Glucose (UA) 150 mg/dL (NEGATIVE) Urine Ketones Negative mg/dL (NEGATIVE) Urine Blood Large (NEGATIVE) Urine Nitrite Negative (NEGATIVE) Urine Bilirubin Negative (NEGATIVE) Urine Urobilinogen Negative mg/dL (0.2-1.9) Urine Leukocyte Esterase Trace (NEGATIVE) Urine RBC 31 /HPF (0-2/HPF) Urine WBC 16 /HPF (0-5/HPF) Urine WBC Clumps Few /HPF Urine Squamous Epithelial Cells Many /LPF (NONE-FEW) Urine Transitional Epithelial Cells Moderate /LPF (NONE-FEW) Urine Bacteria Moderate /HPF (NONE-FEW) Urine Hyaline Casts Many /LPF (NONE-FEW) Urine Mucus Few /HPF (NONE-FEW) Chemistry Test 02/18/18 22:21 02/18/18 23:30 02/19/18 00:00 White Blood Count 10.0 k/uL (4.5-11.0) Red Blood Count 3.43 M/uL (4.00-5.60) Hemoglobin 11.6 g/dL (14.0-18.0) Hematocrit 39.5 % (42.0-52.0) Mean Corpuscular Volume 114.9 fL (80.0-96.0) Mean Corpuscular Hemoglobin 33.7 pg (26.0-33.0) Mean Corpuscular Hemoglobin Concent 29.3 g/dL (32.0-36.0) Red Cell Distribution Width 16.4 % (11.5-14.5) Platelet Count 49 K/uL (150-450) Mean Platelet Volume 8.7 fL (7.2-11.1) Neutrophils (%) (Auto) % (39.4-72.5) Lymphocytes (%) (Auto) % (17.6-49.6) Monocytes (%) (Auto) % (4.1-12.4) Eosinophils (%) (Auto) % (0.4-6.7) Basophils (%) (Auto) % (0.3-1.4) Nucleated RBC Relative Count (auto) /100WBC Neutrophils # (Auto) K/uL (2.0-7.4) Lymphocytes # (Auto) K/uL (1.3-3.6) Monocytes # (Auto) K/uL (0.3-1.0) Eosinophils # (Auto) K/uL (0.0-0.5) Basophils # (Auto) K/uL (0.0-0.1) Nucleated RBC Absolute Count (auto) K/uL Neutrophils % (Manual) 34 % (39.4-72.5) Band Neutrophils % 13 % Lymphocytes % (Manual) 34 % (17.6-49.6) Monocytes % (Manual) 13 % (4.1-12.4) Eosinophils % (Manual) 0 % (0.4-6.7) Basophils % (Manual) 0 % (0.3-1.4) Metamyelocytes % 5 % Myelocytes % 1 % Nucleated Red Blood Cells 2 Macrocytosis 3+ Prothrombin Time 28.0 seconds (12.0-14.4) Prothromb Time International Ratio 2.57 Activated Partial Thromboplast Time 98 seconds (23-35) D-Dimer Quantitative (PE/DVT) > 20.00 ug/ml (0-0.50) Total Bilirubin 0.4 mg/dl (0.2-1.3) Aspartate Amino Transf (AST/SGOT) 136 U/L (0-35) Alanine Aminotransferase (ALT/SGPT) 83 U/L (0-56) Alkaline Phosphatase 37 U/L (0-126) Troponin I 0.159 ng/ml Total Protein 2.9 g/dl (6.3-8.2) Albumin 1.5 g/dl (3.5-5.0) Blood Gas Puncture Site Left radial Blood Gas Patient Temperature 94.4 DEGREES Arterial Blood pH 6.62 (7.35-7.45) Arterial Blood Partial Pressure CO2 85 mmHg (32-37) Arterial Blood Partial Pressure O2 87 mmHg (60-80) Arterial Blood HCO3 9 mmol/L (20-26) Arterial Blood Oxygen Saturation 79 % (92-100) Arterial Blood Base Excess -29.0 mmol/L Bhaskar Test Acceptable Oxygen Liters/Minute 100 Urine Color Yellow Urine Clarity Cloudy Urine pH 7.0 pH (4.8-9.5) Urine Specific [place] 1.009 Urine Protein 100 mg/dL (NEGATIVE) Urine Glucose (UA) 150 mg/dL (NEGATIVE) Urine Ketones Negative mg/dL (NEGATIVE) Urine Blood Large (NEGATIVE) Urine Nitrite Negative (NEGATIVE) Urine Bilirubin Negative (NEGATIVE) Urine Urobilinogen Negative mg/dL (0.2-1.9) Urine Leukocyte Esterase Trace (NEGATIVE) Urine RBC 31 /HPF (0-2/HPF) Urine WBC 16 /HPF (0-5/HPF) Urine WBC Clumps Few /HPF Urine Squamous Epithelial Cells Many /LPF (NONE-FEW) Urine Transitional Epithelial Cells Moderate /LPF (NONE-FEW) Urine Bacteria Moderate /HPF (NONE-FEW) Urine Hyaline Casts Many /LPF (NONE-FEW) Urine Mucus Few /HPF (NONE-FEW) Coagulation Test 02/18/18 22:21 Prothrombin Time 28.0 seconds Prothromb Time International Ratio 2.57 Activated Partial Thromboplast Time 98 seconds D-Dimer Quantitative (PE/DVT) > 20.00 ug/ml Urinalysis Test 02/19/18 00:00 Urine Color Yellow Urine Clarity Cloudy Urine pH 7.0 pH (4.8-9.5) Urine Specific [place] 1.009 Urine Protein 100 mg/dL (NEGATIVE) Urine Glucose (UA) 150 mg/dL (NEGATIVE) Urine Ketones Negative mg/dL (NEGATIVE) Urine Blood Large (NEGATIVE) Urine Nitrite Negative (NEGATIVE) Urine Bilirubin Negative (NEGATIVE) Urine Urobilinogen Negative mg/dL (0.2-1.9) Urine Leukocyte Esterase Trace (NEGATIVE) Urine RBC 31 /HPF (0-2/HPF) Urine WBC 16 /HPF (0-5/HPF) Urine WBC Clumps Few /HPF Urine Squamous Epithelial Cells Many /LPF (NONE-FEW) Urine Transitional Epithelial Cells Moderate /LPF (NONE-FEW) Urine Bacteria Moderate /HPF (NONE-FEW) Urine Hyaline Casts Many /LPF (NONE-FEW) Urine Mucus Few /HPF (NONE-FEW) EKG/Imaging EKG Interpretation 12 lead EKG: Rhythm: Sinus rhythm [place]: normal ST segments: Nonspecific changes Imaging CHEST SINGLE AP 02/18/2018 22:40 hours. HISTORY: Intubation. CODE BLUE. COMPARISON: 01/13/2018 and studies dating to 01/14/2006. TECHNIQUE: Portable AP view of the chest. FINDINGS: Tubes/lines/hardware: ET tube terminates 3 cm above the sary. There are external chest leads. There disconnected shunt tubing projecting at the right chest, unchanged. There is coarse calcification in the right side of the neck. There is a battery pack at the left lateral mid to upper chest and leads terminate at the right and left sides of the neck. Pulmonary: Lungs are clear. There is no pneumothorax or pleural effusion. Cardiomediastinal: Cardiac and mediastinal silhouettes are within normal limits. Bones/soft tissues: No acute osseous abnormality. There are healed posterior left rib fractures. The visible abdomen is normal. IMPRESSION: 1. No acute cardiopulmonary process. 2. Tubes and lines as above. Report Dictated By: Lucinda Webb at 02/18/2018 10:55 PM EXAMINATION: Abdominal radiograph single view HISTORY: Intubation. COMPARISON: KUB from 10/15/2017 and chest radiograph from 02/18/2018. FINDINGS: A single AP supine view of the abdomen is obtained. Lines/tubes: There is a right femoral line present. The tip overlies the L4 vertebra. Bowel gas pattern: Normal. Soft tissues: Negative. Bony structures: Negative. Visualized lung bases: Negative. IMPRESSION: 1. Right femoral line with the tip overlying the L4 vertebra. 2. Normal bowel gas pattern. Report Dictated By: Brooklyn Woodall MD at 02/18/2018 10:58 PM HEAD W/O CONTRAST HISTORY: Unresponsive, seizure COMPARISON STUDIES: 11/13/2016 TECHNIQUE: Contiguous axial images were obtained from the skull base to the vertex. One of the following dose optimization techniques was utilized in the performance of this exam: Automated exposure control; adjustment of the mA and/or kV according to the patient's size; or use of an iterative reconstruction technique. Specific details can be referenced in the facility's radiology CT exam operational policy. FINDINGS: Patient has a right parietal ventriculostomy catheter with the tip terminating in the left lateral ventricle. Ventricles are decompressed. No evidence for hydrocephalus. There is normal sanches-white differentiation. No acute intracranial hemorrhage or mass. Reidentified are prominent bilateral subdural hygromas perhaps slightly larger than prior examination. Prominent dural calcification is noted and progressed from prior exam. Soft tissues demonstrate an ET tube in the oropharynx. The osseous structures are otherwise unremarkable. IMPRESSION: 1. Right parietal ventriculostomy catheter with the tip terminating in the left lateral ventricle. No evidence for hydrocephalus. 2. Prominent bilateral subdural hygromas slightly enlarged from prior examination. 3. No evidence for an acute intracranial hemorrhage, mass or acute ischemia. Report Dictated By: Cristo Rae MD at 02/18/2018 11:30 PM CTA CHEST WW/O CNTR (PULM ANG) HISTORY: Seizure. Unresponsive. Code. COMPARISON: Chest x-ray 02/18/2018 and studies dating to 01/14/2006. No prior chest CT. TECHNIQUE: Pulmonary embolus protocol - Thin-slice axial imaging of the chest was performed during maximal pulmonary arterial opacification with intravenous nonionic iodinated contrast. 3D coronal slab MIPs and 2D reconstructions in the coronal and sagittal planes were performed to aid in pulmonary embolus detection. [facility] images have been stored on PACS. One of the following dose optimization techniques was utilized in the performance of this exam: Automated exposure control; adjustment of the mA and/or kV according to the patient's size; or use of an iterative reconstruction technique. Specific details can be referenced in the facility's radiology CT exam operational policy. CONTRAST: 75 mL of IV Isovue-370. FINDINGS: Pulmonary arteries: There is adequate opacification of the pulmonary arteries to the segmental branches. There are no filling defects in the visible pulmonary arteries. Pulmonary arteries are normal in caliber. Thoracic inlet: Normal. Aorta: No aneurysm or dissection. At the lower thoracic aorta (image 224 series 4), there is a ventral filling defect. However, this does not persist on the CT abdomen and pelvis, compatible with it representing artifact. There is no atherosclerosis of the aorta. Heart / Pericardium: The heart is normal. There is no ventricular septal deviation. There is a trace, likely physiologic, pericardial effusion. There is no coronary artery calcification. Mediastinum / B[place]y: Nearly the entire thoracic esophagus is filled with fluid. No lymphadenopathy. Lungs / Pleura: There is a small left pleural effusion. There is enhancing bibasilar consolidation, compatible with atelectasis. There is also groundglass opacity in the left greater than right lower lobes. No pneumothorax. ET tube is in good position. Airways are normal. Upper abdomen: Please see the CT abdomen and pelvis report that is dictated separately. Musculoskeletal/vertebra/body wall: There is a battery pack for vagal nerve stimulator in the left anterior chest. Leads terminate cephalad off the neck. There is wedge compression of T11, unchanged from prior chest x-ray. There is mild posterior wedging of T7-T10, unchanged. The rest of the vertebral body heights are maintained. IMPRESSION: 1. No pulmonary embolism. 2. Small left pleural effusion. 3. Bibasilar atelectasis. In addition, there are left greater than right lower lobe groundglass opacities. Given that the esophagus is diffusely filled with fluid, findings are concerning for aspiration. Suggest NG or OG tube placement. Report Dictated By: Lucinda Webb at 02/19/2018 1:04 AM ABDOMEN/PELVIS WITH CONTRAST HISTORY: Seizure. Unresponsive. Code. COMPARISON: KUB earlier same evening and abdominal x-rays dating to 01/14/2006. No prior CT abdomen and pelvis. CT pulmonary and exam was performed at the same time as the current examination. TECHNIQUE: Axial images were obtained from the lung bases through the symphysis pubis with intravenous contrast. Sagittal and coronal reformats were performed. One of the following dose optimization techniques was utilized in the performance of this exam: Automated exposure control; adjustment of the mA and/or kV according to the patient's size; or use of an iterative reconstruction technique. Specific details can be referenced in the facility's radiology CT exam operational policy. CONTRAST: 75 mL IV Isovue-370. FINDINGS: Streak artifact from external leads limits evaluation. Lower chest: Please see the CT pulmonary angiogram report that is dictated separately. Liver: Streak artifact from external leads mildly limits evaluation. There is heterogeneous enhancement. There is a 1.6 cm low attenuating lesion in segment II (axial image 32 series 11, coronal image 22, and sagittal image 53). There is a punctate central enhancement within it, potentially a vessel. Lesion is of uncertain etiology. Gallbladder/biliary: Peripheral high attenuation may be enhancement of the wall versus calcification. No gallbladder wall thickening. No calcified stones. No intrahepatic or extrahepatic ductal dilation. Pancreas: Heterogeneously and poorly enhancing and enlarged/edematous. There is peripancreatic stranding. Spleen: Heterogeneous enhancement. Adrenals: Normal. Kidneys/ureters/bladder: Heterogeneously and poorly enhancing. No hydronephrosis. Ureters are normal. There is a Elena catheter within the b ladder. GI/mesentery/peritoneal cavity: There is fluid within the visible esophagus. There are fluid-filled small bowel loops, some of which approach the upper limits of normal. There are also 2 dilated short segments of bowel in the pelvis (image 115 series 11) that do not have normal mucosal enhancement. No transition to indicate bowel obstruction. Some of the bowel loops in the upper abdomen are hyperenhancing. There is moderate stool in colon. The appendix is normal. There is mild ascites, greatest in the pelvis. No free air. There is shunt tubing terminating in the anterior upper pelvis. Vessels: Aorta and its branches are small, compatible with hypovolemia. There is mild atherosclerosis at the aortic bifurcation. No aneurysm. There is a right femoral line that terminates in the inferior vena cava. The vena cava is small and flattened, compatible with hypovolemia. Hepatic veins are also small, as is the superior mesenteric vein and its branches. Nodes: Normal. Pelvis: There is stranding in the right inguinal region from femoral line placement. Bones/vertebra/soft tissues: Stable T11 superior endplate compression fracture. The rest the vertebral body heights are maintained. IMPRESSION: 1. Heterogeneously and poorly enhancing liver, pancreas, kidneys, and spleen, c ompatible with systemic hypotension/shock. 2. Abnormal bowel, compatible with shock bowel. 3. Small amount of ascites is likely due to ventricular shunt. 4. 1.6 cm lesion in hepatic segment II is of uncertain etiology. Nonemergent liver mass MRI is recommended in follow-up, if it would alter clinical management. 5. Fluid in the visible esophagus, likely due to gastroesophageal reflux. These findings were discussed by phone with NATALIE PARRY on 02/19/2018 1:40 AM. Report Dictated By: Lucinda Webb at 02/19/2018 1:19 AM ED Course/Re-evaluation Clinical Indication for ER IV: Hydration, IV Access ED Course Labs, EKG and imaging ordered. Nursing reported to me that the caregiver had stated that the father had stated that he did not want any IV or needles if this was just a seizure. Labs, EKG and imaging cancelled and let the nurses know that we would observe for now to see if he came out of the post ictal state. EKG had been done and while I was able to look at the EKG asked if we could cancel it and not charge the patient based on what I had found out. This did show some nonspecific ST changes, but was sinus. Shortly after this, nursing let me know that they had been on the phone with the patient's father. They report that he was extremely upset with them when they asked about his code status, stating that of course he wanted everything done. Re-evaluation of the patient still shows now response to painful or verbal stimuli. He is simply staring ahead. Pupils now appear more dilated and there was no corneal reflex response. He does not look like a typical post-ictal state to me at this time. I used the caregiver's phone to attempt to contact the father so we could begin a work-up if he was okay with this. He did not answer and I left a message to call me back as soon as possible. The father arrived shortly after my call, the patient's father had not received my message. He was very upset about us asking about the patient's code status. I attempted to let him know that this is a standard question we ask in the ER and that I had called to discuss starting a work-up. He continued to yell at me. I let him know that we would have to agree to disagree about the appropriateness of the question of code status, but that my concern was that with the patient's appearance at this time, and I did not feel that this was a typical post-ictal appearance and I would like to do labs, EKG and imaging. He told me that would be appropriate. At this time, the nurses moved the patient's bed into room 5 because of our concern about his deteriorating condition. Once moved into the other room, the patients pulse started to drop and while hooking him up to the monitors, he stopped breathing and lost his pulse. A code blue was called. Manual compressions of the chest were started. We attempted to use the Colton device for compressions, but this was not able to be used because the patient was too thin. Manual compressions continued. Initial rhythm was PEA. The patient had no IV access. Attempted IV access unsuccessful, so two IOs were placed. NS with pressure bags started. Several doses of epinephrine were given through the IOs. Rhythm check was PEA. Second rhythm check was Asystole. A peripheral IV in the right wrist was attempted, and successful, but unable to draw blood from this line. I immediately decided to place a right femoral central line. While setting up for this, a third rhythm check was performed and looked like ventricular tachycardia. A shock was administered and CPR was continued. On the next rhythm check the patient had a good pulse. I placed the central line at this time, getting blood for labs. Blood pressure was low so a Levophed drip was started. I intubated the patient. A elena catheter was placed, but no urine output. The catheter was placed to the hub, and I inflated the bulb, no back pressure of the elena bulb while inflating. Chest x-ray and KUB were obtained. Lines looked appropriate and the ETT looked to be in good position. I went in and talked to the patient's family. I attempted to let them know what was going on. The father was still angry with me, informing me that if his son , he was going to be suing me. I paused and stated that I did not want to argue with him at this time, and just wanted to tell them what was happening and where we were at this time in the patient's care. I also escorted them back to the family waiting room. CT scan of the head was ordered as well. Based on his low temperature, also started Vancomycin and Zosyn for possible infection. Labs have been coming back, all of these were obtained after the code. The patient had a severe acidosis that looks like a combination of respiratory and metabolic. Platelets are low, but baldemar white count. D-dimer is very elevated. The troponin is also elevated, but looks like a level that indicates this is due to the code. Mild changes in BUN and Creatinine as well. Discussed the case with our hospitalist, Dr. Rasheed. Our concern is that he had a large PE causing the code. The patient was sent back to CT and had a CTA of the chest and a CT of the abdomen and pelvis with contrast. The CTA shows no sign of PE, but does show ground glass opacities, likely due to aspiration at some point. OG tube placed. Abdomen and pelvis CT show shocky organs in the abdomen. I reviewed these with Dr. Rasheed. The patient has received 6 liters of normal saline while in the ER and is still on Levophed to support pressures. The patient is still being ventilated with no spontaneous movements or respirations. I have discussed results several times with the family and after the last results, let them know we would be admitting him to the ICU. At this point he is still in critical condition. We do not know the cause of the code at this point. We will be covering for infection and giving the process time to see how he responds. I did let them know that at this point the outcome is unknown and the most likely outcome would not be a good one. Re-evaluation Procedure: Central line placement. Assumed consent during code; maximal sterile barrier technique was uses including cap, gown, sterile gloves, large sheet, hand washing and chlorhexidine prep. The right femoral vein was punctured with a 19 gauge finder needle, then a wire introducer was placed, a 7 Georgian triple lumen was placed using Seldinger technique. There were no complications. Blood return low pressure, dark blood. Patient tolerated procedure well. KUB results show Appropriate line placement The procedure was performed by myself. Procedure: Rapid sequence intubation. Indication for the procedure was respiratory failure. The patient was preoxygenated with 100% oxygen by bag-valve mask. The patient was given the following IV medications: none needed, patient was obtunded and non-responsive. The patient was orally endotracheally intubated using the Glidescope with a 7.5 ETT. Tracheal intubation was confirmed by direct visualization; with misting on the tube; breath sounds were auscultated equally bilaterally; appropriate color change with CO2 detector. The patient was placed on the capnography monitor. Chest X-ray shows ETT in good position. The procedure was performed by myself. Decision to Disposition Date: Feb 19, 2018 Decision to Disposition Time: 01:40 Critical Care Time I spent a total of 180 minutes of critical care time in obtaining history, performing a physical exam, bedside monitoring of interventions, collecting and interpreting tests and discussion with consultants but not including time spent performing procedures. Depart Departure Latest Vital Signs Vital Signs Date Time Temp Pulse Resp B/P (MAP) Pulse Ox O2 Delivery O2 Flow Rate FiO2 02/19/18 02:15 40.0 02/19/18 02:13 92.4 101 22 80/67 (71) 92 Mechanical Ventilator 02/18/18 21:28 15.0 Impression: Primary Impression: Seizure Additional Impression: Cardiopulmonary arrest Condition: Critical Disposition: Admitted from ER Problem Qualifiers NATALIE PARRY MD Feb 18, 2018 21:18
[~2018-02-18 21:24] MED LIST changes: +CALC625T9 PO; +CHOL10005 PO; +SERT25TA90 PO
[2018-02-18] MEDS ORDERED: NS(*) 0.9% 1000 ML BAG 1,000 ML IV ONE (21:25)
[2018-02-18] MEDS: NS(*) 0.9% 1000 ML BAG 1,000 ML IV PRN ×3 (22:21→23:42)
[2018-02-18] MEDS ORDERED: LEVOPHED KIT (*) 1 IVSOL 1 KIT IV ONE (22:29)
[2018-02-18] MEDS ORDERED: VANCOMYCIN(*) 1 GM VIAL 1.25 GM in NS(*) 0.9% 250 ML BAG 250 ML IVPB ONE (22:45)
[2018-02-18] MEDS ORDERED: PIPERACILLIN/TAZO*3.375GM VIAL 3.375 GM in NS(*) 0.9% 100 ML ADDVANT BAG 100 ML IVPB ONE (22:45)
[2018-02-18 22:49] LABS: PLATELET COUNT, AUTOMATED 49 K/uL (150-450)
[2018-02-18 23:00] LABS: INR 2.57
--- NOTE | 2018-02-18 23:01 | RADIOLOGY IMAGING REPORT ---
FACILITY: [facility] [place] PATIENT NAME: Evan Gonzáles : 1970 MR: [id number] V: [id number] EXAM DATE: ORDERING PHYSICIAN: NATALIE PARRY TECHNOLOGIST: Location: [facility] Patient: Evan Gonzáles : 1970 Visit/Account:[id number] Date of Sevice: 02/18/2018 CHEST SINGLE AP 02/18/2018 22:40 hours. HISTORY: Intubation. CODE BLUE. COMPARISON: 01/13/2018 and studies dating to 01/14/2006. TECHNIQUE: Portable AP view of the chest. FINDINGS: Tubes/lines/hardware: ET tube terminates 3 cm above the sary. There are external chest leads. There disconnected shunt tubing projecting at the right chest, unchanged. There is coarse calcification in the right side of the neck. There is a battery pack at the left lateral mid to upper chest and leads terminate at the right and left sides of the neck. Pulmonary: Lungs are clear. There is no pneumothorax or pleural effusion. Cardiomediastinal: Cardiac and mediastinal silhouettes are within normal limits. Bones/soft tissues: No acute osseous abnormality. There are healed posterior left rib fractures. The visible abdomen is normal. IMPRESSION: 1. No acute cardiopulmonary process. 2. Tubes and lines as above. Report Dictated By: Lucinda Webb at 02/18/2018 10:55 PM Report E-Signed By: Lucinda Webb at 02/18/2018 10:58 PM WSN:[id number]
--- NOTE | 2018-02-18 23:03 | RADIOLOGY IMAGING REPORT ---
FACILITY: [facility] - [place] PATIENT NAME: Evan Gonzáles : 1970 MR: [id number] V: [id number] EXAM DATE: ORDERING PHYSICIAN: NATALIE PARRY TECHNOLOGIST: Location: [facility] Patient: Evan Goználes : 1970 Visit/Account:[id number] Date of Sevice: 02/18/2018 EXAMINATION: Abdominal radiograph single view HISTORY: Intubation. COMPARISON: KUB from 10/15/2017 and chest radiograph from 02/18/2018. FINDINGS: A single AP supine view of the abdomen is obtained. Lines/tubes: There is a right femoral line present. The tip overlies the L4 vertebra. Bowel gas pattern: Normal. Soft tissues: Negative. Bony structures: Negative. Visualized lung bases: Negative. IMPRESSION: 1. Right femoral line with the tip overlying the L4 vertebra. 2. Normal bowel gas pattern. Report Dictated By: Brooklyn Woodall MD at 02/18/2018 10:58 PM Report E-Signed By: Brooklyn Woodall MD at 02/18/2018 10:59 PM WSN:[id number]
--- NOTE | 2018-02-18 23:41 | RADIOLOGY IMAGING REPORT ---
FACILITY: [facility] - [place] PATIENT NAME: Evan Gonzáles : 1970 MR: [id number] V: [id number] EXAM DATE: ORDERING PHYSICIAN: NATALIE PARRY TECHNOLOGIST: Location: [facility] Patient: Evan Gonzáles : 1970 Visit/Account:[id number] Date of Sevice: 02/18/2018 HEAD W/O CONTRAST HISTORY: Unresponsive, seizure COMPARISON STUDIES: 11/13/2016 TECHNIQUE: Contiguous axial images were obtained from the skull base to the vertex. One of the following dose optimization techniques was utilized in the performance of this exam: Autom ated exposure control; adjustment of the mA and/or kV according to the patient's size; or use of an i terative reconstruction technique. Specific details can be referenced in the facility's radiology C T exam operational policy. FINDINGS: Patient has a right parietal ventriculostomy catheter with the tip terminating in the left lateral ve ntricle. Ventricles are decompressed. No evidence for hydrocephalus. There is normal sanches-white differentiation. No acute intracranial hemorrhage or mass. Reidentified are prominent bilateral subdural hygromas perhaps slightly larger than prior examination . Prominent dural calcification is noted and progressed from prior exam. Soft tissues demonstrate an ET tube in the oropharynx. The osseous structures are otherwise unremarka ble. IMPRESSION: 1. Right parietal ventriculostomy catheter with the tip terminating in the left lateral ventricle. No evidence for hydrocephalus. 2. Prominent bilateral subdural hygromas slightly enlarged from prior examination. 3. No evidence for an acute intracranial hemorrhage, mass or acute ischemia. Report Dictated By: Cristo Rae MD at 02/18/2018 11:30 PM Report E-Signed By: Cristo Rae MD at 02/18/2018 11:37 PM WSN:[id number]
[2018-02-18] MEDS ORDERED: NS(*) 0.9% 50 ML BAG 50 ML ONE (23:55)
[2018-02-18] MEDS ORDERED: IOPAMIDOL 76% 50 ML INFUS BTL 100 ML ONE (23:55)
[2018-02-19] VITALS (15 sets, daily range): BP systolic 37–153; BP diastolic 21–98
[2018-02-19] MEDS: NS(*) 0.9% 1000 ML BAG 1,000 ML IV PRN ×2 (00:42→01:30)
--- NOTE | 2018-02-19 01:12 | EKG ---
[place] [facility] [place] NAME: PABLO GUTIERREZ : [id number] MR: [id number] V: [id number] EXAM DATE: ORDERING PHYSICIAN: NATALIE PARRY TECHNOLOGIST: BARB Test Reason : NEURO Blood Pressure : / mmHG Vent. Rate : 086 BPM Atrial Rate : 086 BPM P-R Int : 130 ms QRS Dur : 082 ms QT Int : 324 ms P-R-T Axes : 074 087 040 degrees QTc Int : 387 ms Normal sinus rhythm Possible Left atrial enlargement Nonspecific ST abnormality Abnormal ECG No previous ECGs available Confirmed by JOE MERINO ([id number]) on 02/19/2018 4:43:18 PM Referred By: Confirmed By:JOE MERINO
--- NOTE | 2018-02-19 01:22 | RADIOLOGY IMAGING REPORT ---
FACILITY: [facility] [place] PATIENT NAME: Evan Gonzáles : 1970 MR: [id number] V: [id number] EXAM DATE: ORDERING PHYSICIAN: NATALIE PARRY TECHNOLOGIST: Location: [facility] Patient: Evan Gonzáles : 1970 Visit/Account:[id number] Date of Sevice: 02/18/2018 CTA CHEST WW/O CNTR (PULM ANG) HISTORY: Seizure. Unresponsive. Code. COMPARISON: Chest x-ray 02/18/2018 and studies dating to 01/14/2006. No prior chest CT. TECHNIQUE: Pulmonary embolus protocol - Thin-slice axial imaging of the chest was performed during ma ximal pulmonary arterial opacification with intravenous nonionic iodinated contrast. 3D coronal slab MIPs and 2D reconstructions in the coronal and sagittal planes were performed to aid in pulmonary emb olus detection. [employer] images have been stored on PACS. One of the following dose optimization techniques was utilized in the performance of this exam: Autom ated exposure control; adjustment of the mA and/or kV according to the patient's size; or use of an i terative reconstruction technique. Specific details can be referenced in the facility's radiology CT exam operational policy. CONTRAST: 75 mL of IV Isovue-370. FINDINGS: Pulmonary arteries: There is adequate opacification of the pulmonary arteries to the segmental branch es. There are no filling defects in the visible pulmonary arteries. Pulmonary arteries are normal in caliber. Thoracic inlet: Normal. Aorta: No aneurysm or dissection. At the lower thoracic aorta (image 224 series 4), there is a ventra l filling defect. However, this does not persist on the CT abdomen and pelvis, compatible with it rep resenting artifact. There is no atherosclerosis of the aorta. Heart / Pericardium: The heart is normal. There is no ventricular septal deviation. There is a trace, likely physiologic, pericardial effusion. There is no coronary artery calcification. Mediastinum / Betsy: Nearly the entire thoracic esophagus is filled with fluid. No lymphadenopathy. Lungs / Pleura: There is a small left pleural effusion. There is enhancing bibasilar consolidation, c ompatible with atelectasis. There is also groundglass opacity in the left greater than right lower lo bes. No pneumothorax. ET tube is in good position. Airways are normal. Upper abdomen: Please see the CT abdomen and pelvis report that is dictated separately. Musculoskeletal/vertebra/body wall: There is a battery pack for vagal nerve stimulator in the left an terior chest. Leads terminate cephalad off the neck. There is wedge compression of T11, unchanged fro m prior chest x-ray. There is mild posterior wedging of T7-T10, unchanged. The rest of the vertebral body heights are maintained. IMPRESSION: 1. No pulmonary embolism. 2. Small left pleural effusion. 3. Bibasilar atelectasis. In addition, there are left greater than right lower lobe groundglass opaci ties. Given that the esophagus is diffusely filled with fluid, findings are concerning for aspiration . Suggest NG or OG tube placement. Report Dictated By: Lucinda Webb at 02/19/2018 1:04 AM Report E-Signed By: Lucinda Webb at 02/19/2018 1:18 AM WSN:[id number]
--- NOTE | 2018-02-19 01:51 | RADIOLOGY IMAGING REPORT ---
FACILITY: [facility] - [place] PATIENT NAME: Evan Gonzáles : 1970 MR: [id number] V: [id number] EXAM DATE: ORDERING PHYSICIAN: NATALIE PARRY TECHNOLOGIST: Location: [facility] [place] Patient: Evan Gonzáles : 1970 Visit/Account:[id number] Date of Sevice: 02/19/2018 ABDOMEN/PELVIS WITH CONTRAST HISTORY: Seizure. Unresponsive. Code. COMPARISON: KUB earlier same evening and abdominal x-rays dating to 01/14/2006. No prior CT abdomen a nd pelvis. CT pulmonary and exam was performed at the same time as the current examination. TECHNIQUE: Axial images were obtained from the lung bases through the symphysis pubis with intravenou s contrast. Sagittal and coronal reformats were performed. One of the following dose optimization techniques was utilized in the performance of this exam: Autom ated exposure control; adjustment of the mA and/or kV according to the patient's size; or use of an i terative reconstruction technique. Specific details can be referenced in the facility's radiology CT exam operational policy. CONTRAST: 75 mL IV Isovue-370. FINDINGS: Streak artifact from external leads limits evaluation. Lower chest: Please see the CT pulmonary angiogram report that is dictated separately. Liver: Streak artifact from external leads mildly limits evaluation. There is heterogeneous enhanceme nt. There is a 1.6 cm low attenuating lesion in segment II (axial image 32 series 11, coronal image 2 2, and sagittal image 53). There is a punctate central enhancement within it, potentially a vessel. L esion is of uncertain etiology. Gallbladder/biliary: Peripheral high attenuation may be enhancement of the wall versus calcification. No gallbladder wall thickening. No calcified stones. No intrahepatic or extrahepatic ductal dilation . Pancreas: Heterogeneously and poorly enhancing and enlarged/edematous. There is peripancreatic strand ing. Spleen: Heterogeneous enhancement. Adrenals: Normal. Kidneys/ureters/bladder: Heterogeneously and poorly enhancing. No hydronephrosis. Ureters are normal. There is a Rodriguez catheter within the bladder. GI/mesentery/peritoneal cavity: There is fluid within the visible esophagus. There are fluid-filled s mall bowel loops, some of which approach the upper limits of normal. There are also 2 dilated short s egments of bowel in the pelvis (image 115 series 11) that do not have normal mucosal enhancement. No transition to indicate bowel obstruction. Some of the bowel loops in the upper abdomen are hyperenhan cing. There is moderate stool in colon. The appendix is normal. There is mild ascites, greatest in th e pelvis. No free air. There is shunt tubing terminating in the anterior upper pelvis. Vessels: Aorta and its branches are small, compatible with hypovolemia. There is mild atherosclerosis at the aortic bifurcation. No aneurysm. There is a right femoral line that terminates in the inferio r vena cava. The vena cava is small and flattened, compatible with hypovolemia. Hepatic veins are als o small, as is the superior mesenteric vein and its branches. Nodes: Normal. Pelvis: There is stranding in the right inguinal region from femoral line placement. Bones/vertebra/soft tissues: Stable T11 superior endplate compression fracture. The rest the vertebra l body heights are maintained. IMPRESSION: 1. Heterogeneously and poorly enhancing liver, pancreas, kidneys, and spleen, compatible with systemi c hypotension/shock. 2. Abnormal bowel, compatible with shock bowel. 3. Small amount of ascites is likely due to ventricular shunt. 4. 1.6 cm lesion in hepatic segment II is of uncertain etiology. Nonemergent liver mass MRI is recomm ended in follow-up, if it would alter clinical management. 5. Fluid in the visible esophagus, likely due to gastroesophageal reflux. These findings were discussed by phone with NATALIE PARRY on 02/19/2018 1:40 AM. Report Dictated By: Lucinda Webb at 02/19/2018 1:19 AM Report E-Signed By: Lucinda Webb at 02/19/2018 1:48 AM WSN:[id number]
[2018-02-19] MEDS ORDERED: LEVOPHED KIT (*) 1 IVSOL 0 KIT IV ONE (01:55)
--- NOTE | 2018-02-19 02:10 | RADIOLOGY IMAGING REPORT ---
[facility] PATIENT NAME: Evan Gonzáles : 1970 MR: [id number] V: [id number] EXAM DATE: ORDERING PHYSICIAN: NATALIE PARRY TECHNOLOGIST: Location: [facility] Patient: Evan Gonzáles : 1970 Visit/Account:[id number] Date of Sevice: 02/19/2018 CHEST SINGLE AP 02/19/2018 01:39 hours. HISTORY: OG placement. COMPARISON: CT pulmonary angiogram earlier same day. Chest x-ray earlier same evening and studies robin ing to 01/14/2006. TECHNIQUE: Portable AP view of the chest. FINDINGS: Tubes/lines/hardware: OG tube terminates within the stomach. ET tube terminates 3.2 cm above the alem na. Vagal stimulator battery pack overlies the left lateral chest and leads terminate in the neck off the cephalad portion of the image. There is shunt tubing at the right side of the neck and chest, ex tending into the left abdomen, off the image. There is disconnected shunt tubing from the right mid c hest to upper abdomen, unchanged. There are external chest leads. Pulmonary: There are left greater than right basilar opacities. Left has progressed and right is new. No pneumothorax. The small left pleural effusion identified on CT is not visualized on x-ray. Cardiomediastinal: Cardiac and mediastinal silhouettes are within normal limits. Bones/soft tissues: No acute osseous abnormality. The visible abdomen is normal. IMPRESSION: 1. OG tube terminates in the stomach. 2. Other tubes and lines as above. 2. Bibasilar opacities, compatible with atelectasis, worse on the left and new on the right. Report Dictated By: Lucinda Webb at 02/19/2018 2:02 AM Report E-Signed By: Lucinda Webb at 02/19/2018 2:06 AM WSN:[id number]
[2018-02-19] MEDS ORDERED: NS(*) 0.9% 1000 ML BAG 1,000 ML ONE (02:20)
[2018-02-19] MEDS ORDERED: EPINEPHrine HCL 1 MG/ML AMP ONE ×2 (02:42→03:19)
[2018-02-19] MEDS ORDERED: NS(*) 0.9% 250 ML BAG 250 ML ONE ×2 (02:44→03:25)
[2018-02-19] MEDS ORDERED: DOPamine/DEXTRO(*) 1600 MCG/ML 250 ML IV PRN (04:35)
--- NOTE | 2018-02-19 05:01 | History & Physical ---
History of Present Illness Chief Complaint CP arrest History of Present Illness 47M with developmental disability, seizure disorder from [facility] brought to [facility] via EMS. Arrived non-responsive and shortly after had full CP arrest. ROSC achieved after lengthy resuscitation attempt, and patient admitted to ICU for further management. Father reports seeing him earlier in the day and he was happy and interactive. technology methodology consultant reports several seizures and prolonged postictal period with him in bed and minimally responsive. Apparently it was not uncommon for him to have lengthy, up to 48 hour, periods after a seizure. Following resuscitation pH was 6.7, pCO2 >100, LA 14 indicating he had been hypoxic for an extended period. History Unable To Obtain Past Medical: Unable to Obtain/Update Home Meds Active Scripts Loratadine (LORATADINE) 10 Mg Tablet, 1 TAB PO DAILY, #90 TAB Prov:FERNY SEQUEIRA MD 12/03/16 Reported Medications Calcium Polycarbophil (Calcium Polycarbophil) 625 Mg Tablet, 1000 MG PO QDAY 01/13/18 Sertraline Hcl (SERTRALINE HCL) 25 Mg Tablet, 3 TAB PO QDAY, TAB 01/13/18 Cholecalciferol (Vitamin D3) (VITAMIN D3) 1,000 Unit Tablet, 1000 UNIT PO QDAY, TAB 01/13/18 Levothyroxine Sodium (LEVOTHYROXINE SODIUM) 50 Mcg Tablet, 50 MCG PO QDAY, TAB 10/15/17 Bimatoprost (LUMIGAN) 2.5 Ml Drops, 2.5 ML OP DAILY 07/20/16 Chlorhexidine (CHLORHEXIDINE FLAVOR) 1 Ml Liquid, 1 ML PO HS 07/20/16 Perampanel (Fycompa) 2 Mg Tablet, 2 MG PO DAILY 07/20/16 Sodium Chloride (SODIUM CHLORIDE) 1 Gm Tab, 1 GM PO DAILY, TAB 07/20/16 Divalproex Sodium (DEPAKOTE) 500 Mg Tablet.dr, 1000 MG PO NOON, TAB 07/20/16 Polyvinyl Alcohol/Povidone/Pf (REFRESH CLASSIC EYE DROPS) 1 Each Droperette, 1 EACH OP BID 07/20/16 Sodium Chloride ([place]) 0.65 % [place], 2 SPRAYS NA DAILY 07/20/16 Lacosamide (Vimpat) 200 Mg Tablet, 200 MG PO BID 05/29/11 Multivitamins W-Minerals (Multiple Vitamin) 1 Tab Tablet, 1 TAB PO DAILY 05/29/11 Divalproex Sodium (Depakote) 500 Mg Tablet.dr, 500 MG PO BID, 0 Refills 02/14/10 Allergies: Coded Allergies: adhesive (Verified Allergy, Mild, rash, 07/20/16) lamotrigine (Verified Allergy, Mild, 07/20/16) Sulfa (Sulfonamide Antibiotics) (Verified Allergy, Unknown, 12/31/16) Hx Smoking: No Smoking Status: Never Smoker Hx Alcohol Use: No Review of Systems Other Unable to obtain, intubated and unresponsive. Exam Vital Signs Vital Signs Date Time Temp Pulse Resp B/P (MAP) Pulse Ox O2 Delivery O2 Flow Rate FiO2 02/19/18 02:28 96 Mechanical Ventilator 40.0 02/19/18 02:28 102 26 02/19/18 02:04 96/49 (65) 02/18/18 21:28 95.4 General Appearance: Other (intubated, unresponsive to stimuli) ENT: Other (ET tube) Cardiovascular: Other (weak thready pulse) Respiratory: Other (ventilated) GI: Other (distended and rigid) : Normal (+ Rodriguez) Medical Decision Making Data Points Result Diagram: 02/18/18 2221 02/19/18 0309 EKG / Imaging EKG Interpretation NSR with non-specific ST abnormality Assessment and Plan Problems: (1) Status epilepticus Assessment & Plan: Multiple witnessed seizures with no recovery to baseline in between. Likely patient in status and became hypoxic with reduced level of consciousness then began retaining CO2. (2) Acute respiratory failure with hypoxia and hypercapnia Assessment & Plan: Patient appears to have been hypoxic for extended period of time prior to arrival in ER given pH of 6.7 and pCO2 >100.0. Patient was easily ventilated but hypoxia grew worse as BP deteriorated in ICU despite 3 pressors at maximum respective rates. (3) Cardiopulmonary arrest Status: Acute Assessment & Plan: ROSC achieved in ER, patient then proceeded to arrest 3 rahul es in ICU with ROSC on the 2nd and third resuscitation attempts. Patient was hypotensive despite maximum rates on Levophed, epinephrine and dopamine gtt. Worsening hypoxia noted on monitor, VBG showed continued severe acidosis and worsening hypoxia. On fourth resuscitation attempt I recommended to family that efforts were futile and with family consent stopped the code. No pulse palpable no heart beat on auscultation. Time of 0345. (4) Metabolic acidosis Assessment & Plan: Severe secondary to CO2 retention and lactic acidosis. Venous Thromboembolism Antithrombotics Is Pt On Any Antithrombotics?: No Exam Sepsis Risk: No Definite Risk RAMON SHAKA GUEVARA DO Feb 19, 2018 05:01
--- NOTE | 2018-02-19 05:04 | Death Summary ---
Pronounced Date: Feb 19, 2018 Pronounced Time: 03:45 Preliminary Cause of : Status epilepticus Assessment: Acute hypoxic/hypercapneic respiratory failure Cardiopulmonary arrest Severe Metabolic acidosis History of Present Illness Please see admission history and physical for details. Hospital Course 47M with developmental disability, seizure disorder from [facility] brought to [facility] ER via EMS. Arrived non-responsive and shortly after had full CP arrest. ROSC achieved after lengthy resuscitation attempt Following resuscitation pH was 6.7, pCO2 >100, LA 14 indicating he had been hypoxic for an extended period. Patient then proceeded to arrest 3 times in ICU with ROSC on the 2nd and 3rd resuscitation attempts. Patient was hypotensive despite maximum rates on Levophed, epinephrine and dopamine gtt. Worsening hypoxia noted on monitor, VBG showed continued severe acidosis and worsening hypoxia. On 4th resuscitation attempt I recommended to family that efforts were futile and with family consent stopped the code. No pulse palpable no heart beat on auscultation. Time of 0345. YENNY GUEVARASHAKA DO Feb 19, 2018 05:03
[2018-02-19] MEDS ORDERED: NS 0.9% IV SCH (07:15)
[2018-02-19] MEDS ORDERED: EPINEPHRINE IV SCH (07:15)
[2018-02-19] MEDS ORDERED: EPINEPHrine INJ 1 MG/10 ML SYR 1 MG in NS(*) 0.9% 250 ML BAG 240 ML IV SCH (07:20)
== END 2018-02-19 03:49 | disposition expired | DRG 208 ==
LOC: ER 21:27 → ICU 02-19 02:15
PROVIDERS: ADMIT Internal Medicine; ATTEND Internal Medicine
PROC: 5A12012 Performance of Cardiac Output, Single, Manual (ICD-10-PCS; principal; 2018-02-19)
PROC: 5A1935Z Respiratory Ventilation, Less than 24 Consecutive Hours (ICD-10-PCS; 2018-02-19)
PROC: 06HM33Z Insertion of Infusion Device into Right Femoral Vein, Percutaneous Approach (ICD-10-PCS; 2018-02-19)
PROC: 0BH17EZ Insertion of Endotracheal Airway into Trachea, Via Natural or Artificial Opening (ICD-10-PCS; 2018-02-19)
PROC: 0JHP3XZ Insertion of Tunneled Vascular Access Device into Left Lower Leg Subcutaneous Tissue and Fascia, Percutaneous Approach (ICD-10-PCS; 2018-02-19)
PROC: 0JHN3XZ Insertion of Tunneled Vascular Access Device into Right Lower Leg Subcutaneous Tissue and Fascia, Percutaneous Approach (ICD-10-PCS; 2018-02-19)
DX: J96.02 Acute respiratory failure with hypercapnia (principal); E87.4 Mixed disorder of acid-base balance; J96.01 Acute respiratory failure with hypoxia; I46.9 Cardiac arrest, cause unspecified; G40.901 Epilepsy, unspecified, not intractable, with status epilepticus; T17.918A Gastric contents in respiratory tract, part unspecified causing other injury, initial encounter; F79 Unspecified intellectual disabilities; Z88.2 Allergy status to sulfonamides; Z88.8 Allergy status to other drugs, medicaments and biological substances; Z98.2 Presence of cerebrospinal fluid drainage device
CPT/HCPCS: 36416; 36600; 70450; 71045; 71275; 74018; 74177; 81001; 82040; 82247; 82310; 82374; 82435; 82565; 82803; 82947; 82948; 83605; 84075; 84100; 84132; 84155; 84295; 84450; 84460; 84484; 84520; 85025; 85379; 85610; 85730; 87088; 92950; 93005; 94002; 94003; 99291; 99292; C1758; J0171; J1265; J2543; J3370; J3490; J7030; J7050; Q9967